=== PATIENT | male | born 1990 | race Caucasian/White ===

== ENCOUNTER 2021-11-14 11:54 | Emergency (ER) | payer MEDICAID ==
[2021-11-14 15:55] LABS: CORONAVIRUS COVID-19 NAA NEGATIVE (NEGATIVE)
== END 2021-11-14 15:28 | disposition home or self-care (01) ==
LOC: JP.ED 11:54
DX: K94.23 Gastrostomy malfunction (principal); Z88.2 Allergy status to sulfonamides; Z88.5 Allergy status to narcotic agent; Z20.822 Contact with and (suspected) exposure to COVID-19
CPT/HCPCS: 0241U; 99283

== ENCOUNTER 2021-11-15 06:40 | Day surgery (SDC) | payer MEDICAID ==
[2021-11-15] MEDS ORDERED: Propofol 200 MG/20 ML SDV ONE (07:12)
[2021-11-15] MEDS ORDERED: Sodium Chloride 0.9% 1,000 ML IV SCH (07:15)
[2021-11-15] MEDS ORDERED: ceFAZolin 2 GM in Premix Bag 1 BAG IV ONE (08:00)
== END 2021-11-15 10:10 | disposition home or self-care (01) ==
LOC: JP.SDS 06:40
PROVIDERS: ATTEND Surgery
DX: R13.10 Dysphagia, unspecified (principal)
CPT/HCPCS: J0690; J2704; J7030

== ENCOUNTER 2024-03-11 11:23 | Emergency (ER) | payer MEDICAID | END 2024-03-11 12:18 | disposition home or self-care (01) | LOC: JP.ED 11:23 | DX: Z46.59 Encounter for fitting and adjustment of other gastrointestinal appliance and device (principal); K21.9 Gastro-esophageal reflux disease without esophagitis; Z86.16 Personal history of COVID-19; Z88.5 Allergy status to narcotic agent; Z88.2 Allergy status to sulfonamides; Z88.8 Allergy status to other drugs, medicaments and biological substances | CPT/HCPCS: 43762; 99282-25 ==

== ENCOUNTER 2024-05-30 10:56 | Emergency (ER) | payer MEDICAID, MEDICARE | END 2024-05-30 12:10 | disposition home health service (06) | LOC: JP.ED 10:56 | DX: K94.23 Gastrostomy malfunction (principal); K21.9 Gastro-esophageal reflux disease without esophagitis; Z88.5 Allergy status to narcotic agent; Z88.2 Allergy status to sulfonamides; Z79.899 Other long term (current) drug therapy; Z86.16 Personal history of COVID-19 | CPT/HCPCS: 99282 ==